=== PATIENT | female | born 1985 | race Two or more races ===

== ENCOUNTER 2016-09-09 19:13 | Emergency (ER) | payer OTHER ==
[2016-09-09] MEDS ORDERED: Ondansetron ODT TAB* 4 MG PO ONE (21:58)
[2016-09-09] MEDS ORDERED: LORazepam TAB(*) 1 MG PO ONE (21:58)
--- NOTE | 2016-09-09 23:36 | ED ---
Complex/Multi-Sys Presentation - HPI Summary HPI Summary: 31 female presents accompanied by her sister with complaints of feeling like her jaw is always clenched and "locked" that she relates to her anxiety that has been ongoing for the past week. Patient at first was thinking an old razor blade cut could have caused her to get tetanus although her tetanus is up to date. However she now has been realizing she has been very stressed lately and catches herself clenching her jaw tightly multiple times throughout the day. Also states it has made her gums be irritated. Patient has several finals coming up and also complains of headache. Denies chest pain, difficulty breathing, difficulty swallowing, abdominal pain and vomiting. Admits to nausea when she gets worked up and anxious. Denies medical problems besides a type of epilepsy, however she does not have seizures. - History Of Current Complaint Chief Complaint: EDNeckComplaint Time Seen by Provider: 09/09/16 21:11 Hx Obtained From: Patient, Family/Zoning Engineer - sister Onset/Duration: Sudden Onset, Lasting Days, Lasting Weeks - 1, Still Present, Worse Since Timing: Intermittent, Lasting:, Minutes, Hours Severity Currently: Mild Severity Initially: Moderate Character: Throbbing, Pressure - jaw Alleviating Factor(s): trying to relax her jaw muscles Associated Signs And Symptoms: Positive: Other - hyperventilating, anxiety - Allergies/Home Medications Allergies/Adverse Reactions: Allergies Allergy/AdvReac Type Severity Reaction Status Date / Time No Known Allergies Allergy Verified 09/09/16 22:06 PMH/Surg Hx/FS Hx/Imm Hx Endocrine/Hematology History: Denies: Hx Diabetes Cardiovascular History: Denies: Hx Hypertension Respiratory History: Denies: Hx Asthma Neurological History: 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 - Surgical History Surgery Procedure, Year, and Place: none - Immunization History Date of Tetanus Vaccine: UTD Immunizations Up to Date: Yes Infectious Disease History: No Infectious Disease History: Denies: Traveled Outside the [place] in Last 30 Days - Family History Known Family History: Positive: None - Social History Alcohol Use: None Substance Use Type: Reports: None Smoking Status (MU): Never Smoked Tobacco Review of Systems Constitutional: Negative Eyes: Negative Positive: Other - jaw pain from clenching Cardiovascular: Negative Respiratory: Negative Positive: Nausea - when anxious Genitourinary: Negative Positive: Headache Positive: Anxious All Other Systems Reviewed And Are Negative: Yes Physical Exam Triage Information Reviewed: Yes Vital Signs On Initial Exam: Initial Vitals Temp Pulse Resp BP Pulse Ox 98.3 F 103 18 134/79 100 09/09/16 19:34 09/09/16 19:34 09/09/16 19:34 09/09/16 19:34 09/09/16 19:34 tachycardia noted, patient was experiencing anxiety/panic attack Vital Signs Reviewed: Yes Appearance: Positive: Well-Appearing, Well-Nourished, Pain Distress - patient is crying, hypervenitilating and visibly upset, attempting to study her school notes Skin: Positive: Warm, Skin Color Reflects Adequate Perfusion, Dry, Other - healed skin avulsion noted on left ankle from previous razor blade cut. Negative: Cyanosis @ Head/Face: Positive: Normal Head/Face Inspection, Other - patient points to muscles of jaw b/l when clenching, radiates into upper face. Negative: Temporal Artery Tenderness, TMJ Tenderness - no clicking Eyes: Positive: Normal, EOMI, ENDER, Conjunctiva Inflammed - from crying ENT: Positive: Normal ENT inspection, Hearing grossly normal, Pharynx normal, TMs normal, Other - irritation of right molar gums, from clenching, no lacerations or infection. Negative: Nasal congestion, Nasal drainage, Tonsillar swelling, Tonsillar exudate, Trismus - able to completely open mouth/ jaw without problem., Dental tenderness Dental: Negative: Cervical Lymphadenopathy Neck: Positive: Supple, Nontender, No Lymphadenopathy. Negative: Nuchal Rigidity Respiratory/Lung Sounds: Positive: Clear to Auscultation, Breath Sounds Present , Other - hypervenitilating upon arrival, was able to to come back down into normal range during exam. Negative: Decreased Breath Sounds, Rales, Rhonchi, Wheezes Cardiovascular: Positive: Normal, RRR, Pulses are Symmetrical in both Upper and Lower Extremities, Tachycardia Abdomen Description: Positive: Nontender, No Organomegaly, Soft Bowel Sounds: Positive: Present Musculoskeletal: Positive: Normal, Strength/ROM Intact Neurological: Positive: Normal, Sensory/Motor Intact, Alert, Oriented to Person Place, Time, CN Intact II-III, Reflexes Intact, NV Bundle Intact Distally, Normal Gait Psychiatric: Positive: Anxious - very anxious, crying and appears to be having a panic attack, Other - denies suicidal thoughts/ideations, homicidal thoughts AVPU Assessment: Alert - [place] Coma Scale Best Eye Response: 4 - Spontaneous Best Motor Response: 6 - Obeys Commands Best Verbal Response: 5 - Oriented Diagnostics - Vital Signs Vital Signs Temp Pulse Resp BP Pulse Ox 09/09/16 22:06 98.8 F 84 18 126/72 99 09/09/16 22:05 18 09/09/16 19:34 98.3 F 103 18 134/79 100 - Laboratory Lab Statement: Any lab studies that have been ordered have been reviewed, and results considered in the medical decision making process. Re-Evaluation - Re-Evaluation First Eval Re-Evaluation Time: 23:00 Change: Improved - patient was feeling much better, no longer anxious, jaw discomfort had improved and she was able to refrain from clenching. discussed treatment plan, ready to be d/c Complex Multi-Symp Course/Dx Course Of Treatment: given ativan to help with anxiety attack. patient had significant relief. jaw discomfort improved. discussed that she shoud follow up with school psychiatrist to discuss options to treat anxiety daily to prevent these episodes. given flexeril to take at bedtime starting tomorrow to help relax clenched jaw muscles, also recommend ibuprofen for pain/inflammation. Follow up with PCP. Aware of worsening signs and symptoms. No further work up or evaluation needed at this time. No concern for tetanus due to JAD and tetanus is UTD. Patient did not have lock jaw. - Diagnoses Differential Diagnoses/HQI/PQRI: Other - anxiety, TMJ, jaw pain, panic attack, depression Provider Diagnoses: Anxiety, Jaw pain, non-TMJ Discharge - Discharge Plan Condition: Stable Disposition: HOME Prescriptions: Cyclobenzaprine TAB* [Flexeril 10 MG TAB*] 10 mg PO BEDTIME #10 tab Patient Education Materials: Anxiety (ED), Panic Attack (ED) Forms: *School Release Referrals: Non Staff,Doctor [Primary Care Provider] - Additional Instructions: Take prescribed medication at bedtime to help relax muscles in your jaw/body. This medication will make you drowsy, do not drive while taking this. Follow up with school counselor for possibly starting daily medication to help with your anxiety. Ibuprofen helps with pain and inflammation in your jaw, take as directed, as needed. Follow up with PCP. Try and relax! Get plenty of sleep. Return if your symptoms worsen, or new symptoms develop.
[2016-09-09 23:50] VITALS: BP 124/74
== END 2016-09-09 23:48 | disposition home or self-care (01) ==
LOC: ED 19:13
DX: R51 Headache (principal); R68.84 Jaw pain; R11.0 Nausea; F41.9 Anxiety disorder, unspecified
CPT/HCPCS: 99282; A9270-GY